=== PATIENT | female | born 1965 | race African-American/Black ===

== ENCOUNTER 2017-08-15 16:27 | Emergency (ER) | payer SELFPAY ==
[~2017-08-15] VITALS: Ht 175.3 cm; Wt 111.1 kg
[~2017-08-15 16:27] MED LIST: ALPR0.254 PO; AMLO10TA2 PO; ASPI-482 PO; ATOR20TA PO; CARV6.252 PO; FERR-26 PO; FLUT1DIS3 IH; FLUT9.9S NS; GEMF600T3 PO; HYDR-2678 PO; HYDR25TA9 PO; IRBE300T3 PO; LOSA1TAB22 PO; METF750T2 PO; MONT10TA6 PO; NAPR500T PO; OMEP20TA8 PO; PANT40TA5 PO; POLY255P PO; POTASSIUM CHLO10 MEQ PO; PRAV20TA2 PO; PROAIR HFA8.5 GM INH; SPIR25TA3 PO; TRAZ50TA15 PO
--- NOTE | 2017-08-15 17:12 | PHYS DOC ---
Past Medical History Past Medical History: Anxiety, Arthritis, Asthma, Cancer, High Cholesterol, Hypertension, Other Additional Past Medical Histor: Cervical CA, Hypokal., Edema, Bursitis BUE, preDM, Chronic pain, Drug Seek Past Surgical History: Cancer Surgery, Other Additional Past Surgical Histo: cervical CA removal Alcohol Use: None Drug Use: None Adult General Chief Complaint Chief Complaint: LOWER EXT PAIN HPI HPI Patient is a 52 year old female with history of anxiety, asthma, hypertension, high cholesterol, who presents today concerned about DVT to the left lower extremity. Patient states she feels her LLE is significantly larger than the right lower extremity for the last three days. Patient also states she has had increased pain to the left lower extremity for the last 3 days. She states she talked to her mother who advised her to come to the hospital to be worked out for DVT. She states she was admitted in the hospital 3 weeks ago for chest pain and was on Coumadin during that admission. Patient states she is no longer taking Coumadin. Patient denies any recent long car or air travel, denies taking any hormones. Denies any chest pain or shortness of breath. Shestates she has history of sciatica with pain radiating from the left lower back into the left lower extremity. Patient denies any trauma. Review of Systems Review of Systems Constitutional: Denies fever or chills [] Eyes: Denies change in visual acuity, redness, or eye pain [] HENT: Denies nasal congestion or sore throat [] Respiratory: Denies cough or shortness of breath [] Cardiovascular: No additional information not addressed in HPI [] GI: Denies abdominal pain, nausea, vomiting, bloody stools or diarrhea [] : Denies dysuria or hematuria [] Musculoskeletal: Left lower extremity pain and swelling. Left low back pain radiating to the left lower extremity. Integument: Denies rash or skin lesions [] Neurologic: Denies headache, focal weakness or sensory changes [] Endocrine: Denies polyuria or polydipsia [] Allergies Allergies Allergies Coded Allergies Type Severity Reaction Last Updated Verified Penicillins Allergy Intermediate 11/04/14 Yes chocolate flavor Allergy Intermediate 11/04/14 Yes tramadol Allergy Intermediate Itching 11/27/14 Yes Physical Exam Physical Exam Constitutional: Well developed, well nourished, no acute distress, non-toxic appearance. [] HENT: Normocephalic, atraumatic, bilateral external ears normal, oropharynx moist, no oral exudates, nose normal. [] Eyes: PERRLA, EOMI, conjunctiva normal, no discharge. [] Neck: Normal range of motion, no tenderness, supple, no stridor. [] Cardiovascular:Heart rate regular rhythm, no murmur [] Lungs & Thorax: Bilateral breath sounds clear to auscultation [] Abdomen: Bowel sounds normal, soft, no tenderness, no masses, no pulsatile masses. [] Skin: Warm, dry, no erythema, no rash. [] Back: No tenderness, no CVA tenderness. [] Extremities: Bilateral lower extremities are same in size. No obvious swelling noted on the left lower extremity. Negative Homans sign to the left lower extremity. No tenderness, no cyanosis, no clubbing, ROM intact, no edema. +2 bilateral pedal pulses. Neurologic: Alert and oriented X 3, normal motor function, normal sensory function, no focal deficits noted. [] Psychologic: Affect normal, judgement normal, mood normal. [] Current Patient Data Vital Signs Vital Signs Date Time Temp Pulse Resp B/P (MAP) Pulse Ox O2 Delivery O2 Flow Rate FiO2 08/15/17 17:22 97.6 88 18 96 Room Air 97.6 EKG EKG [] Radiology/Procedures Radiology/Procedures []PROCEDURE: VENOUS LOWER EXTREMITY LEFT Left Lower Extremity Venous Doppler Ultrasound History: pain Comparison: None Procedure: Color flow, duplex, spectral analysis and 2D images are obtained with and without compression in the area of the common femoral vein, superficial femoral vein - femoral vein junction, main femoral vein (superficial femoral vein) and popliteal vein. Veins of the proximal calf are also imaged. Findings: There is normal duplex flow, color flow and compressibility of all visualized vein segments. No evidence of deep venous thrombus is present. Impression: No evidence of DVT. Electronically signed by: Tiesha Valdez III, MD (08/15/2017 6:08 PM) [facility] DICTATED and SIGNED BY: TIESHA VALDEZ III, MD DATE: 08/15/17 8892 CC: KAVIN CANDELARIA MD; ELPIDIO RO PROOF READER; NON,STAFF ~ Course & Med Decision Making Course & Med Decision Making Pertinent Labs and Imaging studies reviewed. (See chart for details) This is a 52-year-old female patient presented to the ED today with concern for DVT to the left lower extremity. She states she has pain and swelling to the left lower extremity as well as chronic sciatica pain. Venous Doppler was ordered for the left lower extremity. Venous Doppler of the left lower extremity is negative for any acute findings. Patient's pain is likely stemming from her sciatica. She was discharged with diclofenac and Robaxin. She was instructed to elevate bilateral lower extremities and wear PRABHAKAR hose to prevent any swelling to bilateral lower extremities. Her blood pressure was elevated in the 160s over 80s. She has history of hypertension. She was reminded to make sure she is taking her medications. Dragon Disclaimer Dragon Disclaimer This electronic medical record was generated, in whole or in part, using a voice recognition dictation system. Departure Departure Impression: Primary Impression: Sciatic leg pain Additional Impression: Accelerated hypertension Disposition: HOME, SELF-CARE Condition: STABLE Referrals: KAVIN CANDELARIA MD (PCP) follow up with your doctor next week Patient Instructions: Hypertension, Sciatica with Rehab-SportsMed Additional Instructions: You were seen for pain suspicious of sciatica. Please take the prescribed medicines as needed for pain. Ice elevate your lower extremities. Wear PRABHAKAR hose prevent any swelling to bilateral lower extremities. Her blood pressure was elevated. Follow-up with your doctor next week, ensure you taking your blood pressure medicines. Scripts Diclofenac Sodium (DICLOFENAC SODIUM) 50 Mg Tablet. 1 TAB PO BID, #30 TAB 0 Refills Prov: ELPIDIO RO APRN 08/15/17 Methocarbamol (ROBAXIN) 500 Mg Tablet 1 TAB PO TID, #30 TAB Prov: ELPIDIO RO APRN 08/15/17 Problem Qualifiers ELPIDIO RO APRN Aug 15, 2017 17:11
--- NOTE | 2017-08-15 18:11 | RAD ---
Left Lower Extremity Venous Doppler Ultrasound History: pain Comparison: None Procedure: Color flow, duplex, spectral analysis and 2D images are obtained with and without compression in the area of the common femoral vein, superficial femoral vein - femoral vein junction, main femoral vein (superficial femoral vein) and popliteal vein. Veins of the proximal calf are also imaged. Findings: There is normal duplex flow, color flow and compressibility of all visualized vein segments. No evidence of deep venous thrombus is present. Impression: No evidence of DVT. Electronically signed by: Stan Valdez III, MD (08/15/2017 6:08 PM) [facility] [place]
[2017-08-15] MEDS ORDERED: METH-37 PO (18:43)
[2017-08-15] MEDS ORDERED: DICL50TA4 PO (18:43)
[2017-08-15 18:48] VITALS: BP 189/115
== END 2017-08-15 18:48 | disposition home or self-care (01) ==
LOC: ER 16:27
DX: M54.42 Lumbago with sciatica, left side (principal); I10 Essential (primary) hypertension; F41.9 Anxiety disorder, unspecified; J45.909 Unspecified asthma, uncomplicated; E78.00 Pure hypercholesterolemia, unspecified; G89.29 Other chronic pain; Z88.0 Allergy status to penicillin; Z88.5 Allergy status to narcotic agent; Z91.02 Food additives allergy status
CPT/HCPCS: 93971; 99284-25

== ENCOUNTER → 2018-12-13 | Outpatient (CLI) | payer OTHER ==
[~2018-12-13] MED LIST changes: +ALBU2.5V8 INH; -AMLO10TA2 PO; +AMLO10TA6 PO; +CARV6.2511 PO; -CARV6.252 PO; +DICL50TA4 PO; -FERR-26 PO; +FERR325T14 PO; -GEMF600T3 PO; +GEMF600T8 PO; +HYDR-2145 PO; -HYDR25TA9 PO; +METH-37 PO; +NAPR-683 PO; -NAPR500T PO; -POLY255P PO; +POLY255P11 PO; +POTA10TA12 PO; -POTASSIUM CHLO10 MEQ PO; -PROAIR HFA8.5 GM INH; -SPIR25TA3 PO; +SPIR25TA5 PO; +TRAZ-85 PO; -TRAZ50TA15 PO
--- NOTE | 2018-12-13 11:03 | RAD ---
Bilateral knees radiograph 12/05/2018 INDICATION: Bilateral painful degenerative joint disease. COMPARISON: None available TECHNIQUE: Single AP standing view of each knee is provided. FINDINGS: There is moderate medial femorotibial joint space narrowing involving the right knee without significant marginal osteophytosis. Mild medial femorotibial joint space narrowing involving the left knee. There is no acute fracture or dislocation. Limited evaluation for knee joint effusion. Limited evaluation of the patellofemoral joint space. IMPRESSION: 1. 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 Electronically signed by: Liliana Aceves MD (12/13/2018 10:58 AM) [id number]
== END | disposition home or self-care (01) ==
LOC: RAD 10:29
PROVIDERS: ATTEND Physical Medicine & Rehabilitation
DX: M17.0 Bilateral primary osteoarthritis of knee (principal)
CPT/HCPCS: 73565